=== PATIENT | male | born 1970 | race Caucasian/White ===

== ENCOUNTER 2016-10-17 00:09 | Emergency (ER) | payer MEDICAID ==
[~2016-10-17] VITALS: Ht 175.3 cm; Wt 98.0 kg
[2016-10-17] MEDS ORDERED: SODIUM CHLORIDE 0.9% 1,000 ML IV ONE (01:24)
[2016-10-17] MEDS ORDERED: KETOROLAC 30MG/ML VIAL IV STA (01:24)
[2016-10-17 01:51] LABS: CLARITY URINE CLEAR (CLEAR); COLOR URINE YELLOW (YELLOW); GLUCOSE URINE NEGATIVE (NEGATIVE); KETONES URINE NEGATIVE (NEGATIVE); LEUKOCYTE ESTERASE URINE NEGATIVE (NEGATIVE); NITRITE URINE NEGATIVE (NEGATIVE); OCCULT BLOOD URINE NEGATIVE (NEGATIVE); PROTEIN URINE NEGATIVE (NEGATIVE); SPECIFIC GRAVITY URINE 1.027 (1.005-1.030); UROBILINOGEN URINE 0.2 E.U./dL (0.2-1.0)
[2016-10-17 01:57] LABS: BASOPHILS % 0.7 % (0.0-2.0); EOSINOPHILS % 3.4 % (0.0-5.0); HEMATOCRIT. 44.5 % (42.0-52.0); HEMOGLOBIN. 14.8 g/dL (14.0-18.0); LYMPHOCYTES % 32.5 % (20.0-50.0); MEAN CORPUSCULAR HEMOGLOBIN 29.2 pg (28.0-32.0); MEAN CORPUSCULAR VOLUME 88.3 fL (80.0-94.0); MEAN PLATELET VOLUME 9.1 fl (7.4-10.4); MONOCYTES % 7.5 % (2.0-8.0); NEUTROPHILS % 55.9 % (40.0-76.0); PLATELET 189 x1000/uL (130-400); RED BLOOD CELL COUNT 5.05 mill/uL (4.7-6.1); RED CELL DISTRIBUTION WIDTH 14.1 % (11.6-14.6)
[2016-10-17 02:02] LABS: CARBON DIOXIDE 27 mEq/L (21-32); CHLORIDE 107 mEq/L (98-107)
[2016-10-17 04:30] VITALS: BP 107/60
== END 2016-10-17 04:38 | disposition home or self-care (01) ==
LOC: ER 00:09
DX: M54.5 Low back pain (principal); F17.200 Nicotine dependence, unspecified, uncomplicated
CPT/HCPCS: 36415; 74176; 80048; 81003; 83690; 85025; 96361; 96374; 99285; J1885; J7030; Z7610

== ENCOUNTER 2017-10-21 01:37 | Emergency (ER) | payer MEDICAID ==
[~2017-10-21] VITALS: Ht 172.7 cm; Wt 98.0 kg
[2017-10-21] MEDS ORDERED: BACITRACIN ZINC 15GM TUBE TOP ONE (04:00)
[2017-10-21] MEDS ORDERED: LIDOCAINE HCL 2% JELLY 5ML TOP ONE (04:00)
[2017-10-21 04:55] VITALS: BP 125/87
== END 2017-10-21 04:56 | disposition home or self-care (01) ==
LOC: ER 01:37
DX: S50.311A Abrasion of right elbow, initial encounter (principal); F17.200 Nicotine dependence, unspecified, uncomplicated; V18.4XXA Pedal cycle driver injured in noncollision transport accident in traffic accident, initial encounter; Y93.55 Activity, bike riding; Y92.89 Other specified places as the place of occurrence of the external cause
CPT/HCPCS: 73080; 99284; A4565

== ENCOUNTER 2018-02-22 06:28 | Emergency (ER) | payer MEDICAID ==
[~2018-02-22] VITALS: Ht 175.3 cm; Wt 99.7 kg
[2018-02-22] MEDS ORDERED: ONDANSETRON HCL 4MG/2ML INJ IV STA (10:37)
[2018-02-22] MEDS ORDERED: SODIUM CHLORIDE 0.9% 1,000 ML IV ONE (10:37)
[2018-02-22] MEDS ORDERED: FAMOTIDINE 20MG/2ML VIAL IV STA (10:37)
[2018-02-22 10:45] LABS: CLARITY URINE CLEAR (CLEAR); COLOR URINE YELLOW (YELLOW); KETONES URINE NEGATIVE (NEGATIVE); LEUKOCYTE ESTERASE URINE NEGATIVE (NEGATIVE); NITRITE URINE NEGATIVE (NEGATIVE); OCCULT BLOOD URINE NEGATIVE (NEGATIVE); PH URINE 5.5 (4.5-8.0); PROTEIN URINE NEGATIVE (NEGATIVE); UROBILINOGEN URINE 0.2 E.U./dL (0.2-1.0)
[2018-02-22 11:14] LABS: BASOPHILS % 0.4 % (0.0-2.0); EOSINOPHILS % 3.6 % (0.0-5.0); HEMATOCRIT. 45.4 % (42.0-52.0); HEMOGLOBIN. 15.3 g/dL (14.0-18.0); LYMPHOCYTES % 30.5 % (20.0-50.0); MEAN CORPUSCULAR HEMOGLOBIN 29.8 pg (28.0-32.0); MEAN CORPUSCULAR VOLUME 88.4 fL (80.0-94.0); MEAN PLATELET VOLUME 9.4 fl (7.4-10.4); MONOCYTES % 7.7 % (2.0-8.0); NEUTROPHILS % 57.8 % (40.0-76.0); PLATELET 209 x1000/uL (130-400); RED BLOOD CELL COUNT 5.14 mill/uL (4.7-6.1); RED CELL DISTRIBUTION WIDTH 13.4 % (11.6-14.6)
[2018-02-22 11:19] LABS: CHLORIDE 105 mEq/L (98-107)
[2018-02-22 14:04] VITALS: BP 114/69
== END 2018-02-22 14:30 | disposition home or self-care (01) ==
LOC: ER 06:28
DX: K80.20 Calculus of gallbladder without cholecystitis without obstruction (principal)
CPT/HCPCS: 36415; 76700; 80053; 81003; 83690; 85025; 96374; 96375; 99285; J2405; J3490; J7030

== ENCOUNTER 2019-04-17 04:18 | Emergency (ER) | payer MEDICAID ==
[~2019-04-17] VITALS: Ht 170.2 cm; Wt 109.0 kg
[2019-04-17] MEDS ORDERED: KETOROLAC 30MG/ML VIAL IM STA (06:40)
[2019-04-17 07:57] LABS: CLARITY URINE CLEAR (CLEAR); COLOR URINE YELLOW (YELLOW); KETONES URINE NEGATIVE (NEGATIVE); LEUKOCYTE ESTERASE URINE NEGATIVE (NEGATIVE); NITRITE URINE NEGATIVE (NEGATIVE); OCCULT BLOOD URINE NEGATIVE (NEGATIVE); PROTEIN URINE NEGATIVE (NEGATIVE); SPECIFIC GRAVITY URINE 1.019 (1.005-1.030); UROBILINOGEN URINE 0.2 E.U./dL (0.2-1.0)
[2019-04-17 09:06] LABS: BASOPHILS % 0.6 % (0.0-2.0); EOSINOPHILS % 2.8 % (0.0-5.0); HEMATOCRIT. 40.1 % (42.0-52.0); HEMOGLOBIN. 13.6 g/dL (14.0-18.0); LYMPHOCYTES % 35.1 % (20.0-50.0); MEAN CORPUSCULAR HEMOGLOBIN 29.5 pg (28.0-32.0); MEAN CORPUSCULAR VOLUME 87.2 fL (80.0-94.0); MEAN PLATELET VOLUME 9.5 fl (7.4-10.4); MONOCYTES % 6.4 % (2.0-8.0); NEUTROPHILS % 55.1 % (40.0-76.0); PLATELET 186 x1000/uL (130-400); RED CELL DISTRIBUTION WIDTH 13.6 % (11.6-14.6)
[2019-04-17 09:15] LABS: CHLORIDE 111 mEq/L (98-107)
[2019-04-17 10:05] VITALS: BP 130/73
== END 2019-04-17 10:14 | disposition home or self-care (01) ==
LOC: ER 04:41
DX: R10.32 Left lower quadrant pain (principal); I10 Essential (primary) hypertension
CPT/HCPCS: 36415; 74176; 80053; 81003; 83690; 85025; 96372; 99284; J1885

== ENCOUNTER 2020-07-27 03:40 | Emergency (ER) | payer MEDICAID ==
[~2020-07-27] VITALS: Ht 170.2 cm; Wt 91.0 kg
[2020-07-27] MEDS ORDERED: PANTOPRAZOLE SODIUM 40 MG/VIAL IV STA (04:04)
[2020-07-27] MEDS ORDERED: SODIUM CHLORIDE 0.9% 1,000 ML IV ONE (04:15)
[2020-07-27] MEDS ORDERED: KETOROLAC 15MG/ML VIAL IV ONE (04:15)
[2020-07-27] MEDS ORDERED: ONDANSETRON HCL 4MG/2ML INJ IV ONE (04:15)
[2020-07-27 04:24] LABS: BASOPHILS % 0.7 % (0.0-2.0); EOSINOPHILS % 1.2 % (0.0-5.0); HEMATOCRIT. 43.2 % (42.0-52.0); HEMOGLOBIN. 14.4 g/dL (14.0-18.0); LYMPHOCYTES % 17.6 % (20.0-50.0); MEAN CORPUSCULAR HEMOGLOBIN 28.5 pg (28.0-32.0); MEAN CORPUSCULAR VOLUME 85.6 fL (80.0-94.0); MONOCYTES % 5.6 % (2.0-8.0); NEUTROPHILS % 74.9 % (40.0-76.0); PLATELET 220 x1000/uL (130-400); RED BLOOD CELL COUNT 5.05 mill/uL (4.7-6.1); RED CELL DISTRIBUTION WIDTH 13.7 % (11.6-14.6)
[2020-07-27 04:27] LABS: CHLORIDE 106 mEq/L (98-107)
[2020-07-27] MEDS ORDERED: ONDA4TAB11 PO (05:52)
[2020-07-27] MEDS ORDERED: FAMO20TA8 MT (05:52)
[2020-07-27 08:15] LABS: CLARITY URINE CLOUDY (CLEAR); COLOR URINE YELLOW (YELLOW); KETONES URINE NEGATIVE (NEGATIVE); LEUKOCYTE ESTERASE URINE NEGATIVE (NEGATIVE); NITRITE URINE NEGATIVE (NEGATIVE); OCCULT BLOOD URINE NEGATIVE (NEGATIVE); PROTEIN URINE NEGATIVE (NEGATIVE); SPECIFIC GRAVITY URINE 1.019 (1.005-1.030); UROBILINOGEN URINE 0.2 E.U./dL (0.2-1.0)
[2020-07-27 11:43] VITALS: BP 145/72
== END 2020-07-27 12:08 | disposition home or self-care (01) ==
LOC: ER 03:54
DX: K29.70 Gastritis, unspecified, without bleeding (principal)
CPT/HCPCS: 36415; 74176; 80053; 81003; 83690; 84484; 85025; 96374; 96375; 99285; C9113; J1885; J2405; J7030

== ENCOUNTER 2022-07-08 14:51 | Emergency (ER) | payer MEDICAID ==
[~2022-07-08] VITALS: Ht 170.2 cm; Wt 102.0 kg
[~2022-07-08 14:51] MED LIST: FAMO20TA8 MT; ONDA4TAB11 PO
[2022-07-08 14:56] VITALS: BP 122/74
[2022-07-08] MEDS ORDERED: ACETAMINOPHEN 325MG TABLET PO ONE (17:15)
[2022-07-08] MEDS ORDERED: ACET-2708 MT (21:41)
[2022-07-08] MEDS ORDERED: IBUP-1525 MT (21:41)
[2022-07-08] MEDS ORDERED: FAMO20TA8 MT (21:41)
== END 2022-07-08 22:04 | disposition home or self-care (01) ==
LOC: ER 15:22
DX: S20.219A Contusion of unspecified front wall of thorax, initial encounter (principal); W11.XXXA Fall on and from ladder, initial encounter; Y93.89 Activity, other specified; Y92.89 Other specified places as the place of occurrence of the external cause; Y99.8 Other external cause status
CPT/HCPCS: 71046; 72100; 99284

== ENCOUNTER 2023-08-09 09:23 | Emergency (ER) | payer MEDICAID ==
[~2023-08-09] VITALS: Ht 170.2 cm; Wt 86.0 kg
[~2023-08-09 09:23] MED LIST changes: +ACET-2708 MT; +IBUP-1525 MT
[2023-08-09 09:28] VITALS: O2SAT 99
[2023-08-09] MEDS ORDERED: SULF1TAB48 MT (09:36)
[2023-08-09] MEDS ORDERED: CEPH500T MT (09:36)
[2023-08-09] MEDS ORDERED: HYDR-4001 MT (09:36)
[2023-08-09] MEDS: CEPHALEXIN 250MG CAPSULE PO ONE (09:50)
[2023-08-09] MEDS: SULFAMETHOXAZOLE/TRIMETHOPRIM 800/160MG TABLET PO ONE (09:50)
[2023-08-09] MEDS: HYDROCODONE/ACETAMINOPHEN 5/325MG TABLET PO ONE (09:50)
[2023-08-09 10:00] VITALS: BP 129/68; PULSE 84; RESP 17; TEMP 98.1
== END 2023-08-09 10:08 | disposition home or self-care (01) ==
LOC: ER 10:02
DX: S60.511A Abrasion of right hand, initial encounter (principal); L03.113 Cellulitis of right upper limb; Z79.899 Other long term (current) drug therapy; X58.XXXA Exposure to other specified factors, initial encounter; Y93.89 Activity, other specified; Y92.89 Other specified places as the place of occurrence of the external cause; Y99.8 Other external cause status
CPT/HCPCS: 99284

== ENCOUNTER 2023-10-04 19:07 | Emergency (ER) | payer MEDICAID ==
[~2023-10-04] VITALS: Ht 170.2 cm; Wt 98.0 kg
[~2023-10-04 19:07] MED LIST changes: +CEPH500T MT; +HYDR-4001 MT; +SULF1TAB48 MT
[2023-10-04 19:10] VITALS: BP 113/57; PULSE 79; RESP 20; TEMP 98.8; O2SAT 96
[2023-10-04 20:52] LABS: BASOPHILS % 0.2 % (0.0-2.0); EOSINOPHILS % 0.5 % (0.0-5.0); HEMATOCRIT. 39.4 % (42.0-52.0); HEMOGLOBIN. 13.1 g/dL (14.0-18.0); LYMPHOCYTES % 18.7 % (20.0-50.0); MEAN CORPUSCULAR HGB CONC 33.1 g/dL (31.0-37.0); MEAN CORPUSCULAR VOLUME 87.5 fL (80.0-94.0); MEAN PLATELET VOLUME 8.7 fl (7.4-10.4); MONOCYTES % 3.1 % (2.0-8.0); NEUTROPHILS % 77.5 % (40.0-76.0); PLATELET 218 x1000/uL (130-400); RED BLOOD CELL COUNT 4.51 mill/uL (4.7-6.1); RED CELL DISTRIBUTION WIDTH 14.3 % (11.6-14.6); WHITE BLOOD COUNT 7.3 x1000/uL (4.5-11.0)
[2023-10-04 20:57] LABS: CALCIUM 8.8 mg/dL (8.7-10.4); CARBON DIOXIDE 23 mEq/L (21-32); CHLORIDE 103 mEq/L (98-107); SODIUM 136 mEq/L (136-145)
[2023-10-04 21:02] LABS: CREATININE 0.7 mg/dL (0.6-1.3); GLUCOSE 130 mg/dL (70-105)
[2023-10-04 21:03] LABS: ETHANOL BLOOD 232 mg/dL (<10); UREA NITROGEN BLOOD 11 mg/dL (9-23)
[2023-10-04 21:06] LABS: AMMONIA < 17 uMol/L (<32)
== END 2023-10-05 04:23 | disposition home or self-care (01) ==
LOC: ER 19:07
DX: F10.129 Alcohol abuse with intoxication, unspecified (principal); R41.82 Altered mental status, unspecified; Z79.899 Other long term (current) drug therapy; Y90.7 Blood alcohol level of 200-239 mg/100 ml
CPT/HCPCS: 36415; 80048; 80320; 82140; 85025; 99283; G0480

== ENCOUNTER 2023-10-28 12:54 | Emergency (ER) | payer MEDICAID ==
[~2023-10-28] VITALS: Ht 170.2 cm; Wt 90.0 kg
[2023-10-28 13:00] VITALS: O2SAT 95
[2023-10-28] MEDS: IBUPROFEN 800MG TABLET PO ONE (13:36)
[2023-10-28] MEDS ORDERED: IBUP-2030 MT (14:37)
[2023-10-28 14:56] VITALS: BP 145/62; PULSE 70; RESP 17; TEMP 98.6
== END 2023-10-28 15:16 | disposition home or self-care (01) ==
LOC: ER 12:54
DX: S40.011A Contusion of right shoulder, initial encounter (principal); S80.02XA Contusion of left knee, initial encounter; Z79.899 Other long term (current) drug therapy; V19.9XXA Pedal cyclist (driver) (passenger) injured in unspecified traffic accident, initial encounter; Y93.89 Activity, other specified; Y92.89 Other specified places as the place of occurrence of the external cause; Y99.8 Other external cause status
CPT/HCPCS: 73100; 73560; 99284

== ENCOUNTER 2024-04-05 05:25 | Emergency (ER) | payer MEDICAID ==
[~2024-04-05] VITALS: Ht 172.7 cm; Wt 106.0 kg
[~2024-04-05 05:25] MED LIST changes: +IBUP-2030 MT; +ONDA-239 PO; -ONDA4TAB11 PO
[2024-04-05 05:30] VITALS: O2SAT 98
[2024-04-05 05:42] VITALS: TEMP 98.4; O2SAT 100
[2024-04-05 06:52] LABS: CHLORIDE 107 mEq/L (98-107); SODIUM 140 mEq/L (136-145)
[2024-04-05 06:53] LABS: CARBON DIOXIDE 25 mEq/L (21-32)
[2024-04-05 06:54] LABS: CALCIUM 9.4 mg/dL (8.7-10.4)
[2024-04-05 06:58] LABS: CREATININE 0.7 mg/dL (0.6-1.3)
[2024-04-05 06:59] LABS: GLUCOSE 117 mg/dL (70-105); UREA NITROGEN BLOOD 12 mg/dL (9-23)
[2024-04-05 07:00] LABS: ALANINE AMINOTRANSFERASE 29 IU/L (10-49); ASPARTATE AMINOTRANSFERASE 16 IU/L (<34)
[2024-04-05 07:01] LABS: ALBUMIN 4.4 g/dL (3.2-4.8); BILIRUBIN DIRECT 0.1 mg/dL (<=3.0); BILIRUBIN TOTAL 0.5 mg/dL (0.1-1.0); PROTEIN TOTAL 7.5 g/dL (6.0-8.3)
[2024-04-05 07:12] LABS: BASOPHILS % 0.2 % (0.0-2.0); EOSINOPHILS % 1.8 % (0.0-5.0); HEMATOCRIT. 43.1 % (42.0-52.0); HEMOGLOBIN. 14.1 g/dL (14.0-18.0); LYMPHOCYTES % 33.8 % (20.0-50.0); MEAN CORPUSCULAR HEMOGLOBIN 28.8 pg (28.0-32.0); MEAN CORPUSCULAR HGB CONC 32.8 g/dL (31.0-37.0); MEAN CORPUSCULAR VOLUME 87.8 fL (80.0-94.0); MEAN PLATELET VOLUME 9.7 fl (7.4-10.4); MONOCYTES % 5.9 % (2.0-8.0); NEUTROPHILS % 58.3 % (40.0-76.0); PLATELET 227 x1000/uL (130-400); RED BLOOD CELL COUNT 4.91 mill/uL (4.7-6.1); RED CELL DISTRIBUTION WIDTH 13.7 % (11.6-14.6); WHITE BLOOD COUNT 8.8 x1000/uL (4.5-11.0)
[2024-04-05 07:40] LABS: CLARITY URINE CLEAR (CLEAR); COLOR URINE YELLOW (YELLOW); GLUCOSE URINE NEGATIVE (NEGATIVE); KETONES URINE NEGATIVE (NEGATIVE); LEUKOCYTE ESTERASE URINE NEGATIVE (NEGATIVE); NITRITE URINE NEGATIVE (NEGATIVE); OCCULT BLOOD URINE NEGATIVE (NEGATIVE); PROTEIN URINE NEGATIVE (NEGATIVE); SPECIFIC GRAVITY URINE 1.021 (1.005-1.030); UROBILINOGEN URINE 0.2 E.U./dL (0.2-1.0)
[2024-04-05] MEDS ORDERED: DICYCLOMINE 10 MG/5 ML ORAL SYR PO STA (08:36)
[2024-04-05 09:36] VITALS: BP 188/62; PULSE 76; RESP 18
[2024-04-05] MEDS: MAGNESIUM/ALUMINUM HYDROXIDE/SIMETHICONE 30ML UDC PO STA (09:36)
[2024-04-05] MEDS: IBUPROFEN 600MG TABLET PO ONE (09:36)
[2024-04-05] MEDS: DICYCLOMINE HCL 10MG CAPSULE PO NR (09:42)
[2024-04-05] MEDS ORDERED: FAMO20TA8 MT (09:43)
== END 2024-04-05 11:17 | disposition home or self-care (01) ==
LOC: ER 05:25
DX: K29.70 Gastritis, unspecified, without bleeding (principal)
CPT/HCPCS: 36415; 74176; 80048; 80076; 81003; 85025; 86850; 86900; 93005; 99284